=== PATIENT | male | born 1950 | race African-American/Black ===

== ENCOUNTER 2016-11-23 16:51 | Inpatient (IN) | payer MEDICARE, OTHER ==
[~2016-11-23] VITALS: Ht 188 cm; Wt 79.9 kg
--- NOTE | ~2016-11-23 | XA166 ---
[facility] A Service of [facility] RADIOLOGY TEXT RESULTS PATIENT: JIM VACA LOCATION: C3A PC 318- : 48 UNIT #: [id number] AGE: [address]: Tita Seals MD SEX: M ORDER DR: [id number] [facility] [address] [facility]. [place], [place] [address] [id number] MR#: [id number] Acc #: [id number] NAME: JIM VACA : 1950 SEX: M STUDY DATE/TIME: 12/03/2016 14:31 UNIT: C3A PCU ROOM: 318 STUDY DESCRIPTION: XA PICC Line Placement WO Port Attending Physician: Tita Seals M.D. Ordering Physician: Tita Seals M.D. Primary Care Physician: Jerome Pedersen M.D. MEDICAL IMAGING REPORT This report is preliminary unless electronic signature is present EXAM XA PICC line placement without port. INDICATIONS IV access. FLUOROSCOPY TIME 0.3 minutes. PRE-PROCEDURE The procedure was explained to the patient and/or patient transportation services representative including risks, benefits, potential complications and potential for alternative forms of treatment. Informed consent was obtained, and prior to initiating the procedure a formal timeout procedure was performed. PROCEDURE Using full standard sterile barrier technique, including caps, gowns, gloves, masks, as well as sterile skin preparation and standard sterile draping, the right arm (brachial vein) was prepped and draped in the usual fashion, and real-time sterile ultrasound guidance was used to localize an arm vein and to confirm vessel patency. A hard copy ultrasound image was recorded. After local anesthesia with 1% Xylocaine, the vein was punctured using real-time sterile ultrasound guidance, and an 0.018 guidewire was advanced into the superior vena cava, using fluoroscopic guidance. A 4-Divehi single-lumen (46 cm) PICC was then measured and deployed with the tip positioned in the superior vena cava. The position of the line was documented with a radiographic image. The line was secured in place with an adhesive dressing and an antibiotic patch was applied. Total fluoro time was 0.3 minutes. Reference air kerma 3 mGy. IMPRESSION [facility] A Service of [facility] RADIOLOGY TEXT RESULTS PATIENT: JIM VACA LOCATION: C3A 318-01 : 48 UNIT #: [id number] AGE: [address]: Tita Seals MD SEX: M ORDER DR: Successful placement of a 4-Divehi single-lumen (46 cm) PowerPICC via the right arm (brachial vein) under ultrasound and fluoroscopic guidance. The tip of the PICC is in good position in the superior vena cava. A single fluoroscopic spot image was obtained. Dictated by... Chandana Orozco M.D. THIS IS AN ELECTRONICALLY VERIFIED REPORT Chandana Orozco M.D. at 12/06/2016 9:06 AM LINETTE/joseluis TD: 12/03/2016 19:16 JOB #: [id number] MEDICAL IMAGING REPORT Page 1 of 1 COPY
--- NOTE | ~2016-11-23 | EKG ---
PATIENT: JIM VACA UNIT #: [id number] Ventricular Rate: 107 BPM Atrial Rate: 107 BPM P-R Interval: 162 ms QRS Duration: 90 ms Q-T Interval: 322 ms QTC Calculation(Bezet): 429 ms P Vadito: 66 degrees Calculated R Vadito: 74 degrees Calculated T Vadito: 59 degrees Diagnosis Line: Sinus tachycardia with occasional Premature Diagnosis Line: ventricular complexes Diagnosis Line: Otherwise normal ECG Diagnosis Line: When compared with ECG of 26-JAN-2016 16:20, Diagnosis Line: Premature ventricular complexes are now Present Diagnosis Line: Vent. rate has increased BY 49 BPM Diagnosis Line: ST no longer elevated in Anterior leads Diagnosis Line: Nonspecific T wave abnormality, worse in Inferior Diagnosis Line: leads Diagnosis Line: Nonspecific T wave abnormality now evident in Diagnosis Line: Anterior leads Diagnosis Line: Confirmed by JOSE ALBERTO GRIMES MD ([id number]) on Diagnosis Line: 11/25/2016 8:30:07 AM INTERPRETING MD: SYDNEY MARTINEZ
--- NOTE | ~2016-11-23 | FU ---
[facility] Nutrition Therapy DATE: 11/30/16 Patient: JIM VACA Physician: TAMIKO Address: [address] [place] [address] Room/Bed: [address] [place] [address], Zip: [place] [address] Admit Date: 11/23/16 Date of : 48 Height: 6 2 Weight: 171 77.8 NUTRITION MONITORING/FOLLOW-UP: Reason: FOLLOW UP Anthropometrics: Ht: 6'2" Adm wt: 75.9 kg BMI: 21.5 IBW: 86.3 kg, 88% IBW Wt 11/30: 77.8 kg Labs: Na+ 133 K+ 3.2 BUN 6 Creat 0.5 Ca++ 7.9 Accuchecks 78-200 Meds: Protonix, levemir, NaCl, synthroid, lipitor, colace, ascorbic acid, novolog, therapeutic formula I&O's: , last BM 11/30 Skin: Wounds BL feet/ legs Unstageable ulcer BL hips 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 LEAD GENERATION REPRESENTATIVE reported to RD that the pt consumed ~50% of his breakfast and lunch. RD spoke with the pt at bedside. Pt was tearful, reporting that he is in pain d/t wounds. RD stressed the importance of adequate protein intake for wound healing support. Pt voiced understanding, and would like to try different flavors of Ensure. RD will inform RN that the pt is in pain, and order different supplement flavors. Dx: Inadequate protein-energy intake RT decreased appetite AEB pt report, weight loss noted- ACTIVE/ RESOLVING 2) Increased protein needs RT skin breakdown AEB wounds on BL hips and BL feet/legs, stage III pressure ulcer to coccyx- ACTIVE Intervention: 1. Continue current diet 2. Glucerna TID 3. Jeff BID [facility] Nutrition Therapy DATE: 11/30/16 Patient: JIM VACA Physician: TAMIKO Address: [facility] Room/Bed: [address] [place] [address], Zip: [place] [address] Admit Date: 11/23/16 Date of : 48 Height: 6 2 Weight: 171 77.8 Monitoring, Evaluation and Goals: 1. Oral intake; consume >50% of meals and supplements- NOT MET/ IN PROGRESS 2. Weights; prevent weight loss, promote weight gain- IN PROGRESS 3. Skin; promote healing- NOT MET/ IN PROGRESS 4. GI; promote regular GI function- IN PROGRESS Recommendations: 1. Continue current HH/CC diet. 2. Glucerna TID (two strawberry, once chocolate) for supplemental nutrition. 3. Jeff BID for wound healing support. 4. Encourage adequate nutritional intake as needed. 5. Optimize the pt's insulin regimen. Status: Pt is at mild-moderate nutritional risk. RD will continue to follow per protocol. Respectfully, MIHAELA HUNTER RD, LD Food and Nutritional Services [facility] cc: client file
--- NOTE | ~2016-11-23 | CO ---
Unit #: [id number] #: [id number] Patient: JIM VACA [id number] [address] [address] [id number] Kenneth MR#: [id number] NAME: JIM VACA ROOM: 318 Age: 66 Sex: M Admission Date: 11/23/2016 : 1950 Attending Physician: Tita Seals M.D. Primary Care Physician: Jerome Pedersen M.D. Consultation Date: 11/30/2016 CONSULTATION REPORT REASON FOR CONSULTATION Uncontrolled diabetes mellitus. HISTORY OF PRESENT ILLNESS Mr. Vaca is a 66-year-old, who has been homeless for few months, was subsequently admitted to care home and presented here with the extensive wounds on bilateral hips and lower extremities and failure to thrive. He does have a history of diabetes mellitus. I am not sure whether he is type 1 or type 2 with his blood sugars have been elevated also. There have been some minor hypoglycemia episodes. I have been asked to see the patient for further adjustments of her insulin. PAST MEDICAL HISTORY Diabetes mellitus, insulin dependent; hypertension; hypothyroidism; hyperlipidemia; peripheral neuropathy. PAST SURGICAL HISTORY Cataract surgery and wound debridement. MEDICATIONS List is reviewed. Currently, the patient is on Levemir 10 units subcu b.i.d., NovoLog low-dose supplement sliding scale. For other medications, please see MAR. SOCIAL HISTORY Lives in care home at this point. No history of alcohol use or tobacco use. ALLERGIES To Thorazine. REVIEW OF SYSTEMS 12-point review of system was completed. Please see HPI, otherwise unremarkable. PHYSICAL EXAMINATION GENERAL: The patient looks comfortable, in no acute respiratory distress. VITAL SIGNS: Temperature 98.8, pulse 94, respiratory rate 18, blood pressure 140/70. HEENT: EOMI. Pupils equally reactive to light. NECK: Supple. No thyromegaly noted. CHEST: Good air entry. Unit #: [id number] #: [id number] Patient: JIM VACA CVS: Regular rhythm. No murmurs. ABDOMEN: Soft and nontender. Bowel sounds positive. EXTREMITIES: amputation of the left big toe plus multiple lower extremity wounds. DIAGNOSTIC STUDIES LABORATORY RESULTS: Sodium 133, potassium 3.2, CO2 is 25. A1c 6.4. Blood glucose log been reviewed. ASSESSMENT 1. Diabetes mellitus type 2, seems to be fairly controlled with A1c of 6.4. 2. Extensive lower extremity wounds in bilateral hips, history of positive . 3. Malnutrition. PLAN Plan is to discontinue Levemir at bedtime. Continue Levemir 10 units in the morning daily, NovoLog medium dose supplement sliding scale. Continue all the other medication at the same. Accu-Cheks a.c. and h.s. Nutrition notes were reviewed. Thanks again for consultation. Dictated by... Tory Mckinney/jose TD: 12/01/2016 17:35 JOB #: [id number] CONSULTATION REPORT Page 1 of 1 X Sb Mcgrath MD X CONSULTATION REPORT
--- NOTE | ~2016-11-23 | DS ---
Unit #: [id number] #: [id number] Patient: JIM VACA [id number] [address] [address] [id number] I MR#: [id number] NAME: JIM VACA ROOM: 318 Age: 66 Sex: M Admission Date: 11/23/2016 : 1950 Discharge Date: 12/03/2016 Attending Physician: Tita Seals M.D. Primary Care Physician: Jerome Pedersen M.D. DISCHARGE SUMMARY DISCHARGE DIAGNOSES 1. Bilateral necrotic hip ulcer status post debridement of left hip ulcer, 8 x 8 cm, level 4 debridement and debridement of the right ulcer, 8 x 10 cm, level 4 debridement. Multiple wounds on bilateral feet. 2. Sepsis, resolved. 3. Leukocytosis, resolved. 4. Diabetes mellitus type 2. 5. Hypothyroidism. 6. Peripheral neuropathy. 7. Hyperlipidemia. 8. History of hydronephrosis and acute kidney injury in 2014. DISCHARGE MEDICATIONS 1. IV Zosyn 3.375 g 8 hourly for six more days. 2. IV vancomycin 1,250 mg q.12. Pharmacy to dose for six more days. 3. Ascorbic acid 500 mg twice a day. 4. Synthroid 100 mcg daily. 5. Protonix 40 mg daily. 6. Oxycodone 15 mg q.4 p.r.n. for moderate to severe pain. 7. Oxycodone IR 15 mg q.8 hourly. 8. Melatonin 5 mg at bedtime p.r.n. 9. Multivitamin daily. 10. Insulin, Detemir, 14 units subcu b.i.d. 11. Simvastatin 20 mg daily. 12. Acetaminophen 650 mg q.6 p.r.n. 13. Depakote 125 mg twice a day. 14. Gabapentin 300 mg q.8. 15. Seroquel 25 mg t.i.d. 16. Colace 100 mg b.i.d. Please note the patient's amlodipine and atenolol have been discontinued at this time because of hypertension. He may require these medications in future. LAB WORKUP ON DISCHARGE CBC shows WBC 14.0, hemoglobin 8.7, hematocrit 27.2 and platelet count of 462. Sodium 135, potassium 3.6, chloride 107, BUN 5, creatinine 0.5, calcium 7.7. Wound culture is MRSA 1+ positive. PROCEDURE PERFORMED DURING HOSPITALIZATION Debridement of left and right ulcer with level 4 debridement. This procedure was performed on 11/25/[address] Migel Burch. Unit #: [id number] #: [id number] Patient: JIM VACA CONSULTATIONS IN THE HOSPITAL 1. Dr. Migel Burch from [facility]. 2. Dr. Knowles from Infectious Disease. 3. Dr. Sb Mcgrath from Endocrinology Services. HOSPITAL COURSE Mr. Campos is a 66-year-old male who was [facility] with multiple and extensive wounds. The patient had bilateral hip wounds with bilateral feet ulcers but significant odor. Surgery was consulted. The patient had extensive debridement done of bilateral hip and dressing needs to be continued. The patient was seen by Infectious Disease. The patient has been started on vancomycin and Zosyn. That needs to be continued for six more days. PICC line will be placed today. The patient is stable at this time to be transferred back to rehab facility. The patient will need to follow up with Wound Care physicians for ongoing treatment and management. The patient's diabetes was uncontrolled, was adjusted. The patient did have hypoglycemic episode during hospitalization so dose of insulin has been reduced. The patient was hypertensive during hospitalization. The patient's blood pressure medications have been held at this time. EXAMINATION ON DISCHARGE VITAL SIGNS: Blood pressure 107/57. Respiratory rate 18. Pulse 93. Temperature 99.0. Oxygen saturation 99%. HEENT: Head is normocephalic. CHEST: Fair air entry. CARDIOVASCULAR: Regular rhythm. Dressing is present on bilateral hip. DISCHARGE INSTRUCTIONS 1. The patient is being discharged to rehab facility after PICC line placement. 2. Wound Care per Surgery. 3. Medication as per medication reconciliation. 4. Prescription for pain medication is being written. Dictated by... Tory Cooley TD: 12/03/2016 13:55 JOB #: [id number] DISCHARGE SUMMARY Page 1 of 1 X Tita Seals MD X DISCHARGE SUMMARY
--- NOTE | ~2016-11-23 | OR ---
Unit #: [id number] #: [id number] Patient: JIM VACA [id number] [address] [address] [id number] I MR#: [id number] NAME: JIM VACA ROOM: 318 Date of Procedure: 11/25/2016 Admission Date: 11/23/2016 Surgeon: Migel Burch M.D. : 1950 Attending Physician: Bud Madrigal M.D. Primary Care Physician: Jerome Pedersen M.D. OPERATIVE REPORT PREOPERATIVE DIAGNOSIS Bilateral necrotic hip ulcers. POSTOPERATIVE DIAGNOSIS Bilateral necrotic hip ulcers with extension into muscle bilaterally. PROCEDURES PERFORMED 1. Debridement of left hip ulcer, 8 x 8 cm (level IV debridement). 2. Debridement of right ulcer 8 x 10 cm, (level IV debridement). ANESTHESIA LMA. COMPLICATIONS None. ESTIMATED BLOOD LOSS 150 cc. DESCRIPTION OF PROCEDURE After the patient was prepped and draped in usual fashion, each hip was addressed sequentially. The right hip full-thickness loss 8 x 8 cm in diameter. Electrocautery was used to divide the necrotic tissue away from the viable skin margin. The necrotic tissue went all the way through the subcutaneous tissue to include fascia and portion of the underlying musculature, which was removed as well. The hemostasis was completed with electrocautery. There was a single place where, a vvdedz-kr-jiefg stick tie of 3-0 Vicryl was used to control the bleeding, half-strength Betadine, dressing was applied. The patient's left hip was then examined. There was an 8 x 10 cm area of full-thickness necrosis there, again, electrocautery was used to divide the tissues at the margin of necrosis and viable skin. This wound also went all the way down with necrotic tissue involving subcutaneous fat, fascia, and the portion of the muscle as well, the gluteal musculature. This was all removed mostly with electrocautery dissection and sent as a specimen. This was the level IV debridement as well because this included muscle. Hemostasis again completed with electrocautery. The wound was packed with half-strength Betadine gauze. Dressing was applied. The patient was taken to the recovery room in good condition. Dictated by... Unit #: [id number] #: [id number] Patient: JIM VACA M.D. CJT/jose TD: 11/26/2016 04:41 JOB #: [id number] OPERATIVE REPORT Page 1 of 1 X Migel Burch X PROCEDURE OPERATIVE NOTE
--- NOTE | ~2016-11-23 | CR72 ---
[facility] A Service of [facility] RADIOLOGY TEXT RESULTS PATIENT: JIM VACA LOCATION: [facility] 318-01 : 48 UNIT #: [id number] AGE: [address]: Bud Madrigal MD SEX: M ORDER DR: [id number] [facility] [address] [facility]. [place], [place] [address] [id number] I MR#: [id number] Acc #: [id number] NAME: JIM VACA : 1950 SEX: M STUDY DATE/TIME: 11/23/2016 18:27 UNIT: A U ROOM: 318 STUDY DESCRIPTION: CR Chest Single View Portable Attending Physician: Bud Madrigal M.D. Ordering Physician: Peewee Kennedy M.D. Primary Care Physician: Jerome Pedersen M.D. MEDICAL IMAGING REPORT This report is preliminary unless electronic signature is present EXAM Portable chest, 11/23/2016 HISTORY 66-year-old male with shortness of air and cough for a few days. COMPARISON Chest, 01/26/2016 FINDINGS Two frontal views of the chest demonstrate clear lungs. No pleural effusion or pneumothorax. Heart size and mediastinum are normal. Pulmonary vasculature normal. IMPRESSION No acute cardiopulmonary findings. Dictated by... Omid Obregon M.D. THIS IS AN ELECTRONICALLY VERIFIED REPORT Omid Obregon M.D. at 11/24/2016 2:16 PM ROCHELLE/billy TD: 11/24/2016 12:30 JOB #: [id number] MEDICAL IMAGING REPORT Page 1 of 1 COPY
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
--- NOTE | ~2016-11-23 | HP ---
Unit #: [id number] #: [id number] Patient: JIM VACA [id number] [address] [address] [id number] MR#: [id number] NAME: JIM VACA ROOM: 318 Age: 66 Sex: M Admission Date: 11/23/2016 : 1950 Attending Physician: Bud Madrigal M.D. Primary Care Physician: Jerome Pedersen M.D. HISTORY AND PHYSICAL CHIEF COMPLAINT Multiple wounds. HISTORY OF PRESENT ILLNESS Mr. Vaca is a 66-year-old male who has been homeless for a few months. Was admitted recently to a shelter. The patient was reported to be failure to thrive and extensive wounds and diabetes. The patient was sent to ER from [facility] facility for nonhealing multiple wounds on the hips and the feet. The patient does not complain of any fever, chills or rigors although he does have low-grade temperature in the hospital. He does complain of pain on his wounds. He keeps asking for pain medication. According to him the level of pain is pretty high, 8 to 9/10. He does not complain of chills. No complaint of nausea or vomiting. No complaint of constipation or diarrhea. PAST MEDICAL HISTORY 1. Hypertension. 2. Diabetes. 3. Hypothyroidism. 4. Hyperlipidemia. 5. Peripheral neuropathy. 6. History of hydronephrosis and acute kidney injury in 2014. PAST SURGICAL HISTORY 1. History of hernia repair. 2. Cataract surgery. MEDICATIONS 1. Ascorbic acid 500 mg b.i.d. 2. Depakote 125 mg b.i.d. 3. Seroquel 25 mg t.i.d. 4. Amitriptyline 25 mg daily. 5. Norvasc 10 mg daily. 6. Tenormin 50 mg daily. 7. Baclofen 10 mg t.i.d. p.r.n. 8. Docusate 100 mg b.i.d. 9. Levemir 14 units subcu b.i.d. 10. Levothyroxine 100 mcg p.o. daily. 11. Zofran 4 mg q.6 p.r.n. 12. Simvastatin 20 mg daily. 13. Roxicodone 15 mg q.8 hours. 14. Neurontin 300 mg q.8 hours. 15. Multivitamin daily. Unit #: [id number] #: [id number] Patient: JIM VACA 16. Melatonin 5 mg q.h.s. SOCIAL HISTORY The patient lives in a shelter at this time. No history of smoking, alcohol or drug abuse. FAMILY HISTORY The patient has strong family history of diabetes in both his parents. ALLERGIES Thorazine. REVIEW OF SYMPTOMS As per history of present illness. PHYSICAL EXAMINATION GENERAL: The patient is lying in bed. Is being evaluated in room 318. VITAL SIGNS: Blood pressure 128/75, respiratory rate 16, pulse 107, temperature 97.3, oxygen saturation 99%. HEENT: Head is normocephalic. Eye movements are normal. NECK: Neck is supple. RESPIRATORY: Chest has fair air entry. No adventitious sounds. CVS: S1, S2 positive. Regular rhythm. Tachycardia is present. ABDOMEN: Bowel sounds are positive. Soft. Nontender. No organomegaly. EXTREMITIES: The patient has extensive left and right hip wounds. There are some necrotic areas present. Multiple wounds on bilateral feet. There is a lot water, foul odor from the wound but seems to be dry. There is no drainage. Negative edema. HEALTH CARE MARKETING SPECIALIST: Awake, alert and oriented x3. Is moving all his extremities. Neuro exam is limited. DIAGNOSTIC STUDIES LAB WORKUP: Sodium 137, potassium 4.2, chloride 102, BUN 20, creatinine 0.8, lactic acid 2.5. WBC 19.3, hemoglobin 8.9, hematocrit 28.9 and platelet count 532. Urinalysis was done, which shows 2+ leukocyte esterase, yeast positive. ASSESSMENT AND PLAN 1. The patient is being admitted to telemetry unit with multiple ulcers and wounds on hips and bilateral feet with necrosis, infection and foul odor. 2. Sepsis. 3. Infected multiple wounds. 4. Leukocytosis secondary to above. 5. Rule out osteomyelitis. 6. Diabetes mellitus type 2. 7. Peripheral neuropathy. 8. Hypothyroidism. PLAN Patient is being admitted to telemetry unit. IV antibiotic is being started. Infectious disease has been consulted. LSA has been consulted. The patient is scheduled for debridement tomorrow morning. Cardiac enzymes will be done. EKG will be done. Chest x-ray will be reviewed. IV fluids are being started. Accu-Cheks a.c. and harrietts. with insulin sliding scale, low dose protocol. IV Protonix 40 mg daily and Lovenox, which will be held when the patient is going for surgery. Please refer to progress note for further orders. Unit #: [id number] #: [id number] Patient: JIM VACA Dictated by Tory Cooley TD: 11/24/2016 13:50 JOB #: [id number] HISTORY AND PHYSICAL Page 1 of 1 X Tita Seals MD X HISTORY AND PHYSICAL
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
[~2016-11-23 16:51] MED LIST: AMITRIPTYLINE H75 MG PO; AMLODIPINE BESYL5 MG PO; FLOMAX0.4 M1 PO; GABAPENTIN600 MG PO; HUMALOG100 U/ML SUBQ; HYDROCODON-ACE1 EAC7 PO; LANTUS100 U/ML SUBQ; LEVOXYL100 MCG PO; LOW DOSE ASPIRI81 M1 PO; METFORMIN PO; MIRALAX17 GM PO; TENORMIN50 MG PO; ZESTRIL40 MG PO
[2016-11-23 18:35] LABS: BASOPHIL# 0.1 X10e3 (0-0.3); BASOPHIL% 0.4 % (0-2.5); DIFF IND YES; EOSINOPHIL# 0.2 X10e3 (0-0.7); EOSINOPHIL% 0.9 % (0.0-7.0); HEMATOCRIT 28.9 % (38.0-50.0); HEMOGLOBIN 8.9 gm/dL (13.0-16.0); LYMPHOCYTE# 3.2 X10e3 (1.0-3.5); LYMPHOCYTE% 16.7 % (17.0-45.0); MEAN CELL VOLUME 79.7 FL (83-96); MEAN CORPUSCULAR HEMOGLOBIN 24.5 PG (28-34); MEAN CORPUSCULAR HGB CONC 30.7 g/dL (30-36); MEAN PLATELET VOLUME 7.2 FL (6.5-11.5); MONOCYTE# 1.8 X10e3 (0-1.0); MONOCYTE% 9.4 % (3.0-12.0); NEUTROPHIL% 72.6 % (40-75); PLATELET COUNT 532 X10e3 (140-420); RED BLOOD COUNT 3.62 X10e (3.90-5.60); RED CELL DISTRIBUTION WIDTH 17.8 % (11.0-15.5); WHITE BLOOD COUNT 19.3 X10e3 (4.0-10.5)
[2016-11-23 18:54] LABS: BLOOD UREA NITROGEN 20 mg/dL (9-23); CALCIUM SERUM 8.4 mg/dL (8.4-10.2); CARBON DIOXIDE 27 mmol/L (22-31); CHLORIDE 102 mmol/L (100-111); CPK (CREATINE PHOSPHOKINASE) 52 IU/L (36-174); CREATININE SERUM 0.8 mg/dL (0.6-1.4); DEPAKENE (VALPROIC ACID) <10 ug/mL (50-125); GLOM FILT RATE Estimated 106.4 mL/min (>60); GLUCOSE FASTING 67 mg/dL (70-110); POTASSIUM 4.2 mmol/L (3.5-5.1); SODIUM 137 mmol/L (135-145)
[2016-11-23 18:56] LABS: HYPOCHROMIA MOD; PLATELET ESTIMATE INCREASED (NORMAL)
[2016-11-23 19:35] LABS: URINE SOURCE CLEAN CATCH
[2016-11-23 19:44] LABS: URINE APPEARANCE CLEAR; URINE BILIRUBIN NEG (NEG); URINE BLOOD NEG (NEG); URINE COLOR YELLOW; URINE GLUCOSE NEG (NEG); URINE KETONE NEG (NEG); URINE LEUKOCYTE ESTERASE 2+ (NEG); URINE NITRATE NEG (NEG); URINE PH 5.5 (5-8); URINE PROTEIN TRACE (NEG); URINE SPECIFIC GRAVITY 1.025 (1.003-1.035)
[2016-11-23 20:02] LABS: CULTURE INDICATED? NO; URINE YEAST PRESENT
[2016-11-24] MEDS ORDERED: VITAMIN C PO (12:14)
[2016-11-24] MEDS ORDERED: DEPAKOTE SPRIN125 MG PO (12:14)
[2016-11-24] MEDS ORDERED: AMITRIPTYLINE H25 MG PO (12:15)
[2016-11-24] MEDS ORDERED: SEROQUEL25 MG PO (12:15)
[2016-11-24] MEDS ORDERED: TENORMIN50 MG PO (12:16)
[2016-11-24] MEDS ORDERED: NORVASC10 MG PO (12:16)
[2016-11-24] MEDS ORDERED: BACLOFEN10 MG PO (12:17)
[2016-11-24] MEDS ORDERED: DOCUSATE SODIU100 M1 PO (12:18)
[2016-11-24] MEDS ORDERED: LEVEMIR100 UNITS/ SUBQ (12:18)
[2016-11-24] MEDS ORDERED: LEVOTHYROXINE100 MCG PO (12:19)
[2016-11-24] MEDS ORDERED: ZOFRAN PO (12:20)
[2016-11-24] MEDS ORDERED: SIMVASTATIN20 MG PO (12:21)
[2016-11-24] MEDS ORDERED: GLYCOLAX119 GM PO (12:21)
[2016-11-24] MEDS ORDERED: ROXICODONE15 MG PO ×2 (12:22)
[2016-11-24] MEDS ORDERED: NEURONTIN300 MG PO (12:23)
[2016-11-24] MEDS ORDERED: HUMALOG100 UNIT/1 (12:24)
[2016-11-24] MEDS ORDERED: PAIN RELIEF650 MG PO (12:25)
[2016-11-24] MEDS ORDERED: MULTI VITAMIN1 EACH PO (12:25)
[2016-11-24] MEDS ORDERED: MELATONIN5 M1 PO (12:26)
[2016-11-24 20:41] LABS: BASOPHIL# 0.2 X10e3 (0-0.3); BASOPHIL% 1.1 % (0-2.5); EOSINOPHIL% 0.1 % (0.0-7.0); HEMATOCRIT 27.4 % (38.0-50.0); HEMOGLOBIN 8.3 gm/dL (13.0-16.0); LYMPHOCYTE% 15.9 % (17.0-45.0); MEAN CELL VOLUME 79.1 FL (83-96); MEAN CORPUSCULAR HEMOGLOBIN 24.1 PG (28-34); MEAN CORPUSCULAR HGB CONC 30.4 g/dL (30-36); MEAN PLATELET VOLUME 7.4 FL (6.5-11.5); MONOCYTE# 1.5 X10e3 (0-1.0); NEUTROPHIL# 14.4 X10e3 (1.5-7.1); NEUTROPHIL% 74.9 % (40-75); PLATELET COUNT 550 X10e3 (140-420); RED BLOOD COUNT 3.46 X10e (3.90-5.60); RED CELL DISTRIBUTION WIDTH 17.9 % (11.0-15.5); WHITE BLOOD COUNT 19.2 X10e3 (4.0-10.5)
[2016-11-24 20:42] LABS: DIFF IND NO
[2016-11-24 20:54] LABS: INR 1.3; PROTHROMBIN TIME (PATIENT) 14.4 SECONDS (10.0-11.7)
[2016-11-24 21:22] LABS: %MB 3.1 % (0.0-4.0); MB 12.2 ng/ml
[2016-11-25 06:11] LABS: HEMATOCRIT 24.9 % (38.0-50.0); HEMOGLOBIN 7.7 gm/dL (13.0-16.0); MEAN CELL VOLUME 78.8 FL (83-96); MEAN CORPUSCULAR HEMOGLOBIN 24.4 PG (28-34); MEAN PLATELET VOLUME 7.5 FL (6.5-11.5); RED BLOOD COUNT 3.16 X10e (3.90-5.60)
[2016-11-25 06:29] LABS: BUN/CREATININE RATIO 22.85; CALCIUM SERUM 7.9 mg/dL (8.4-10.2); CREATININE SERUM 0.7 mg/dL (0.6-1.4); GLOM FILT RATE Estimated 112.4 mL/min (>60); POTASSIUM 3.7 mmol/L (3.5-5.1)
[2016-11-25 17:41] LABS: HEMATOCRIT 24.7 % (38.0-50.0); HEMOGLOBIN 7.9 gm/dL (13.0-16.0)
[2016-11-26 05:58] LABS: HEMATOCRIT 21.5 % (38.0-50.0); MEAN CELL VOLUME 79.4 FL (83-96); MEAN CORPUSCULAR HEMOGLOBIN 24.5 PG (28-34); MEAN CORPUSCULAR HGB CONC 30.9 g/dL (30-36); MEAN PLATELET VOLUME 7.5 FL (6.5-11.5); RED BLOOD COUNT 2.71 X10e (3.90-5.60); RED CELL DISTRIBUTION WIDTH 17.5 % (11.0-15.5); WHITE BLOOD COUNT 14.3 X10e3 (4.0-10.5)
[2016-11-26 06:02] LABS: HEMOGLOBIN 6.6 gm/dL (13.0-16.0)
[2016-11-27 06:07] LABS: HEMATOCRIT 26.5 % (38.0-50.0); HEMOGLOBIN 8.4 gm/dL (13.0-16.0); MEAN CELL VOLUME 80.3 FL (83-96); MEAN CORPUSCULAR HEMOGLOBIN 25.5 PG (28-34); MEAN CORPUSCULAR HGB CONC 31.7 g/dL (30-36); MEAN PLATELET VOLUME 7.4 FL (6.5-11.5); RED BLOOD COUNT 3.3 X10e (3.90-5.60); RED CELL DISTRIBUTION WIDTH 18.4 % (11.0-15.5); WHITE BLOOD COUNT 16.6 X10e3 (4.0-10.5)
[2016-11-27 07:21] LABS: BUN/CREATININE RATIO 11.42; CALCIUM SERUM 7.7 mg/dL (8.4-10.2); CREATININE SERUM 0.7 mg/dL (0.6-1.4); GLOM FILT RATE Estimated 112.4 mL/min (>60); POTASSIUM 3.7 mmol/L (3.5-5.1)
[2016-11-28 08:31] LABS: HEMATOCRIT 29.2 % (38.0-50.0); HEMOGLOBIN 9.1 gm/dL (13.0-16.0); MEAN CELL VOLUME 81.9 FL (83-96); MEAN CORPUSCULAR HEMOGLOBIN 25.5 PG (28-34); MEAN CORPUSCULAR HGB CONC 31.2 g/dL (30-36); MEAN PLATELET VOLUME 7.5 FL (6.5-11.5); RED BLOOD COUNT 3.56 X10e (3.90-5.60); RED CELL DISTRIBUTION WIDTH 18.7 % (11.0-15.5); WHITE BLOOD COUNT 15.4 X10e3 (4.0-10.5)
[2016-11-28 08:56] LABS: CALCIUM SERUM 8.1 mg/dL (8.4-10.2); CREATININE SERUM 0.5 mg/dL (0.6-1.4); GLOM FILT RATE Estimated 129.1 mL/min (>60); POTASSIUM 3.9 mmol/L (3.5-5.1)
[2016-11-29 08:01] LABS: HEMATOCRIT 26.4 % (38.0-50.0); HEMOGLOBIN 8.3 gm/dL (13.0-16.0); MEAN CELL VOLUME 80.3 FL (83-96); MEAN CORPUSCULAR HEMOGLOBIN 25.3 PG (28-34); MEAN CORPUSCULAR HGB CONC 31.5 g/dL (30-36); MEAN PLATELET VOLUME 6.9 FL (6.5-11.5); RED BLOOD COUNT 3.28 X10e (3.90-5.60); WHITE BLOOD COUNT 13.8 X10e3 (4.0-10.5)
[2016-11-29 08:40] LABS: CALCIUM SERUM 7.7 mg/dL (8.4-10.2); CREATININE SERUM 0.5 mg/dL (0.6-1.4); GLOM FILT RATE Estimated 129.1 mL/min (>60); POTASSIUM 3.7 mmol/L (3.5-5.1)
[2016-11-30 06:14] LABS: HEMATOCRIT 25.5 % (38.0-50.0); HEMOGLOBIN 8.2 gm/dL (13.0-16.0); MEAN CELL VOLUME 79.7 FL (83-96); MEAN CORPUSCULAR HEMOGLOBIN 25.6 PG (28-34); MEAN CORPUSCULAR HGB CONC 32.1 g/dL (30-36); MEAN PLATELET VOLUME 6.6 FL (6.5-11.5); RED BLOOD COUNT 3.2 X10e (3.90-5.60); RED CELL DISTRIBUTION WIDTH 19.2 % (11.0-15.5); WHITE BLOOD COUNT 15.1 X10e3 (4.0-10.5)
[2016-11-30 06:43] LABS: CALCIUM SERUM 7.9 mg/dL (8.4-10.2); CREATININE SERUM 0.5 mg/dL (0.6-1.4); GLOM FILT RATE Estimated 129.1 mL/min (>60); POTASSIUM 3.2 mmol/L (3.5-5.1)
[2016-12-01 05:16] LABS: HEMATOCRIT 25.1 % (38.0-50.0); HEMOGLOBIN 8.2 gm/dL (13.0-16.0); MEAN CELL VOLUME 79.9 FL (83-96); MEAN CORPUSCULAR HEMOGLOBIN 26.3 PG (28-34); MEAN CORPUSCULAR HGB CONC 32.9 g/dL (30-36); MEAN PLATELET VOLUME 6.8 FL (6.5-11.5); RED BLOOD COUNT 3.14 X10e (3.90-5.60); RED CELL DISTRIBUTION WIDTH 19.6 % (11.0-15.5); WHITE BLOOD COUNT 12.8 X10e3 (4.0-10.5)
[2016-12-01 05:53] LABS: CALCIUM SERUM 7.7 mg/dL (8.4-10.2); CREATININE SERUM 0.5 mg/dL (0.6-1.4); GLOM FILT RATE Estimated 129.1 mL/min (>60); POTASSIUM 3.6 mmol/L (3.5-5.1)
[2016-12-03 03:35] LABS: HEMATOCRIT 27.2 % (38.0-50.0); HEMOGLOBIN 8.7 gm/dL (13.0-16.0); MEAN CELL VOLUME 80.3 FL (83-96); MEAN CORPUSCULAR HEMOGLOBIN 25.8 PG (28-34); MEAN CORPUSCULAR HGB CONC 32.1 g/dL (30-36); MEAN PLATELET VOLUME 6.6 FL (6.5-11.5); RED BLOOD COUNT 3.39 X10e (3.90-5.60); RED CELL DISTRIBUTION WIDTH 19.3 % (11.0-15.5)
== END 2016-12-03 17:57 | DRG 853 ==
LOC: CED 16:51 → CEDOF 19:35 → C3A PCU 19:35 → CEDOF 20:03 → CED 20:03 → C3A PCU 20:03 → CEDOF 11-24 00:25 → C3A PCU 11-24 00:25
PROVIDERS: Emergency Medicine; Hospitalist; Internal Medicine; Physician Assistant Medical; Surgery
PROC: 0KBN0ZZ Excision of Right Hip Muscle, Open Approach (ICD-10-PCS; 2016-11-25)
PROC: 0KBP0ZZ Excision of Left Hip Muscle, Open Approach (ICD-10-PCS; principal; 2016-11-25 11:00)
PROC: 30233N1 Transfusion of Nonautologous Red Blood Cells into Peripheral Vein, Percutaneous Approach (ICD-10-PCS; 2016-11-26)
PROC: 02HV33Z Insertion of Infusion Device into Superior Vena Cava, Percutaneous Approach (ICD-10-PCS; 2016-12-03)
PROC: B548ZZA Ultrasonography of Superior Vena Cava, Guidance (ICD-10-PCS; 2016-12-03)
DX: A41.9 Sepsis, unspecified organism (principal); L89.224 Pressure ulcer of left hip, stage 4; L89.214 Pressure ulcer of right hip, stage 4; E46 Unspecified protein-calorie malnutrition; E11.40 Type 2 diabetes mellitus with diabetic neuropathy, unspecified; E11.649 Type 2 diabetes mellitus with hypoglycemia without coma; E11.621 Type 2 diabetes mellitus with foot ulcer; D62 Acute posthemorrhagic anemia; Z68.1 Body mass index [BMI] 19.9 or less, adult; R65.20 Severe sepsis without septic shock; Z79.4 Long term (current) use of insulin; E11.65 Type 2 diabetes mellitus with hyperglycemia; L97.529 Non-pressure chronic ulcer of other part of left foot with unspecified severity; L97.519 Non-pressure chronic ulcer of other part of right foot with unspecified severity; I10 Essential (primary) hypertension; R62.7 Adult failure to thrive; Z83.3 Family history of diabetes mellitus; Z88.8 Allergy status to other drugs, medicaments and biological substances; E87.6 Hypokalemia; E78.5 Hyperlipidemia, unspecified; E03.9 Hypothyroidism, unspecified
CPT/HCPCS: 36415; 71010; 76937; 77001; 80048; 80164; 80202; 81003; 82550; 82553; 82947; 83036; 83605; 84484; 85014; 85018; 85025; 85027; 85610; 85652; 86140; 86850; 86900; 86901; 86923; 87040; 87070; 87077; 87086; 87186; 87205; 93005; 96361; 96365; 99284; C1751; C9113; J1642; J1650; J1815; J2270; J2370; J2405; J2543; J3010; J3370; P9016

== ENCOUNTER 2017-01-27 00:14 | Emergency (ER) | payer MEDICARE, OTHER ==
[~2017-01-27] VITALS: Ht 172.7 cm; Wt 75.4 kg
--- NOTE | ~2017-01-27 | CT71 ---
[facility] A Service of [facility] RADIOLOGY TEXT RESULTS PATIENT: IJM VACA LOCATION: MICHAEL : [birth year] UNIT #: [id number] AGE: [address]: Carrillo Goldstein MD SEX: M ORDER DR: [id number] [facility] [address]. [place], [place] [address] [id number] MR#: [id number] Acc #: [id number] NAME: JIM VACA : 1950 SEX: M STUDY DATE/TIME: 01/27/2017 2:23 UNIT: MICHAEL ROOM: STUDY DESCRIPTION: CT Head Wo Contrast Attending Physician: Carrillo Goldstein M.D. Ordering Physician: Carrillo Goldstein M.D. Primary Care Physician: No Primary Care Physician MEDICAL IMAGING REPORT This report is preliminary unless electronic signature is present EXAM CT head, noncontrast, 01/27/2017. HISTORY 66-year-old male in the ED with new onset confusion/mental status changes, decreased level of consciousness noted today prior to arrival. Low blood sugar is noted. TECHNIQUE CT examination of the head without IV contrast. This CT exam was performed with one or more of the following radiation dose reduction techniques: automatic exposure control, adjustment of mA and/or kV according to patient size, and iterative reconstruction. FINDINGS No acute intracranial abnormality is identified. Chronic left inferior temporal lobe infarct. Mild generalized cerebral atrophy. Mild diffuse low-attenuation white matter changes, nonspecific but likely related to chronic small vessel disease. Atheromatous calcification of carotid siphons. No evidence of intracranial hemorrhage, mass, mass effect, cerebral edema, hydrocephalus or additional abnormality. IMPRESSION 1. No acute intracranial abnormality. 2. Stable mild diffuse chronic changes as noted above. 3. 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 4. No change since 01/26/2016. Dictated by... Rui Carrington M.D. [facility] A Service of [facility] RADIOLOGY TEXT RESULTS PATIENT: JIM VACA LOCATION: [facility] : [birth year] UNIT #: [id number] AGE: [address]: Carrillo Goldstein MD SEX: M ORDER DR: THIS IS AN ELECTRONICALLY VERIFIED REPORT Rui Carrington M.D. at 01/27/2017 10:30 PM Denise TD: 01/27/2017 09:08 JOB #: [id number] MEDICAL IMAGING REPORT Page 1 of 1 COPY
--- NOTE | ~2017-01-27 | EKG ---
PATIENT: JIM VACA UNIT #: [id number] Ventricular Rate: 74 BPM Atrial Rate: 74 BPM P-R Interval: 164 ms QRS Duration: 84 ms Q-T Interval: 396 ms QTC Calculation(Bezet): 439 ms P Johnson: 81 degrees Calculated R Johnson: 62 degrees Calculated T Johnson: 63 degrees Diagnosis Line: Normal sinus rhythm Diagnosis Line: Nonspecific ST abnormality Diagnosis Line: Abnormal ECG Diagnosis Line: When compared with ECG of 24-NOV-2016 12:49, Diagnosis Line: Premature ventricular complexes are no longer Diagnosis Line: Present Diagnosis Line: Confirmed by JOSE ALBERTO GRIMES MD ([id number]) on Diagnosis Line: 01/28/2017 9:43:17 AM INTERPRETING MD: SYDNEY MARTINEZ
[~2017-01-27 00:14] MED LIST changes: +AMITRIPTYLINE H25 MG PO; +BACLOFEN10 MG PO; +DEPAKOTE SPRIN125 MG PO; +DOCUSATE SODIU100 M1 PO; +GLYCOLAX119 GM PO; +HUMALOG100 UNIT/1; +LEVEMIR100 UNITS/ SUBQ; +LEVOTHYROXINE100 MCG PO; +MELATONIN5 M1 PO; +MULTI VITAMIN1 EACH PO; +NEURONTIN300 MG PO; +NORVASC10 MG PO; +PAIN RELIEF650 MG PO; +ROXICODONE15 MG PO; +SEROQUEL25 MG PO; +SIMVASTATIN20 MG PO; +VITAMIN C PO; +ZOFRAN PO
[2017-01-27] MEDS ORDERED: IPRAT-ALBUT 0.5-3 ML INH (00:24)
[2017-01-27] MEDS ORDERED: LEVOTHYROXINE100 MCG PO (00:24)
[2017-01-27] MEDS ORDERED: NEURONTIN300 MG PO (00:24)
[2017-01-27] MEDS ORDERED: MULTIVITAMINS1 EAC3 PO (00:25)
[2017-01-27] MEDS ORDERED: MIRALAX17 G2 PO (00:25)
[2017-01-27] MEDS ORDERED: NORVASC10 MG PO (00:26)
[2017-01-27] MEDS ORDERED: BACLOFEN10 MG PO (00:26)
[2017-01-27] MEDS ORDERED: TENORMIN50 MG PO (00:26)
[2017-01-27] MEDS ORDERED: HYDROCODON-ACE1 EAC7 PO ×2 (00:27→00:34)
[2017-01-27] MEDS ORDERED: QUETIAPINE FUMA25 MG PO (00:27)
[2017-01-27] MEDS ORDERED: SENNA8.6 M1 PO (00:27)
[2017-01-27] MEDS ORDERED: DEPAKOTE SPRIN125 M1 PO (00:28)
[2017-01-27] MEDS ORDERED: VITAMIN C500 M1 PO (00:28)
[2017-01-27] MEDS ORDERED: [UNRECOGNIZED DRUG - OTHER] PO (00:29)
[2017-01-27] MEDS ORDERED: PROBIOTIC250 MG PO (00:29)
[2017-01-27] MEDS ORDERED: OYSTER SHELL C1 EAC4 PO (00:29)
[2017-01-27] MEDS ORDERED: MELATONIN5 M1 PO (00:31)
[2017-01-27] MEDS ORDERED: LEVOFLOXACIN500 MG PO (00:31)
[2017-01-27] MEDS ORDERED: VANCOMYCIN1.25 GM/21 IV (00:31)
[2017-01-27] MEDS ORDERED: TYL325 PO (00:32)
[2017-01-27] MEDS ORDERED: SIMVASTATIN20 MG PO (00:32)
[2017-01-27] MEDS ORDERED: ZOFRAN PO (00:33)
[2017-01-27] MEDS ORDERED: MAPAP500 M1 PO (00:33)
[2017-01-27] MEDS ORDERED: BISACODYL10 MG PR (00:34)
[2017-01-27] MEDS ORDERED: LEVEMIR SUBQ (00:35)
[2017-01-27] MEDS ORDERED: HUMALOG100 UNIT/1 SUBQ ×2 (00:35)
[2017-01-27 01:58] LABS: URINE SOURCE CATH
[2017-01-27 02:01] LABS: URINE APPEARANCE CLOUDY; URINE BILIRUBIN NEG (NEG); URINE BLOOD TRACE (NEG); URINE COLOR YELLOW; URINE GLUCOSE NEG (NEG); URINE KETONE NEG (NEG); URINE LEUKOCYTE ESTERASE 1+ (NEG); URINE NITRATE NEG (NEG); URINE PH 5.5 (5-8); URINE PROTEIN 1+ (NEG); URINE SPECIFIC GRAVITY 1.023 (1.003-1.035); URINE UROBILINOGEN 0.2 MG/DL (NEG)
[2017-01-27 02:04] LABS: CULTURE INDICATED? YES; URINE BACTERIA AUWI NEG (NEGATIVE); URINE SQUAMOUS EPITHELIAL CELL FEW /[HPF]
[2017-01-27 02:08] LABS: BASOPHIL% 0.5 % (0-2.5); EOSINOPHIL# 0.3 X10e3 (0-0.7); EOSINOPHIL% 3.4 % (0.0-7.0); HEMATOCRIT 29.1 % (38.0-50.0); HEMOGLOBIN 9.4 gm/dL (13.0-16.0); LYMPHOCYTE# 1.8 X10e3 (1.0-3.5); LYMPHOCYTE% 19.7 % (17.0-45.0); MEAN CELL VOLUME 81.1 FL (83-96); MEAN CORPUSCULAR HEMOGLOBIN 26.1 PG (28-34); MEAN CORPUSCULAR HGB CONC 32.2 g/dL (30-36); MEAN PLATELET VOLUME 8.4 FL (6.5-11.5); MONOCYTE# 1.5 X10e3 (0-1.0); MONOCYTE% 16.2 % (3.0-12.0); NEUTROPHIL# 5.4 X10e3 (1.5-7.1); NEUTROPHIL% 60.2 % (40-75); PLATELET COUNT 298 X10e3 (140-420); RED BLOOD COUNT 3.59 X10e (3.90-5.60); RED CELL DISTRIBUTION WIDTH 20.6 % (11.0-15.5)
[2017-01-27 02:09] LABS: DIFF IND NO
[2017-01-27 02:12] LABS: INR 1.2; PARTIAL THROMBOPLASTIN TIME 23.3 SECONDS (23.5-31.3); PROTHROMBIN TIME (PATIENT) 12.6 SECONDS (10.0-11.7)
[2017-01-27 02:26] LABS: ALBUMIN SERUM 2.1 g/dL (3.5-5.0); BILIRUBIN, DIRECT 0.1 mg/dL (0.0-0.2); BILIRUBIN,INDIRECT 0.4 mg/dL (0.0-0.9); BILIRUBIN,TOTAL 0.5 mg/dL (0.2-2.0); BUN/CREATININE RATIO 34.54; CALCIUM SERUM 8.1 mg/dL (8.4-10.2); CREATININE SERUM 1.1 mg/dL (0.6-1.4); GLOM FILT RATE Estimated 79.5 mL/min (>60); POTASSIUM 3.3 mmol/L (3.5-5.1); PROTEIN TOTAL SERUM 6.5 g/dL (6.0-8.3)
== END 2017-01-27 06:45 | disposition home or self-care (01) ==
LOC: CED 00:14
PROVIDERS: Emergency Medicine
DX: E11.649 Type 2 diabetes mellitus with hypoglycemia without coma (principal); I10 Essential (primary) hypertension; E78.5 Hyperlipidemia, unspecified
CPT/HCPCS: 36415; 70450; 80048; 80076; 80164; 81003; 82140; 82947; 83605; 85025; 85610; 85730; 87040; 87045; 87077; 87086; 87427; 87493; 87899; 93005; 96365; 96366; 96375; 99285